=== PATIENT | female | born 1985 | race American Indian/Alaskan Native ===

== ENCOUNTER 2019-12-30 13:35 | Emergency (ER) | payer SELFPAY ==
[2019-12-30 13:51] VITALS: BP 140/86
--- NOTE | 2019-12-30 14:03 | Emergency Department Report ---
ED General Adult HPI - General Chief complaint: Eye Problems Stated complaint: RED EYE/BLURRY VISION Time Seen by Provider: 12/30/19 13:59 Source: patient Mode of arrival: Ambulatory Limitations: No Limitations - History of Present Illness Initial comments: 34-year-old -[place] female patient presents with complaints of left eye redness and crusting shut x2 days. She states she does wear contacts, but denies any trauma to the eye, foreign body sensation, photophobia, or vision changes. She rates her current pain as a 8/10 in severity. Severity scale (0 -10): 1 - Related Data Previous Rx's Medication Instructions Recorded Last Taken Type Ofloxacin 0.3% [Ocuflox 0.3% opth] 0 drops OP Q4H #1 bottle 12/30/19 Unknown Rx ED Review of Systems ROS: Stated complaint: RED EYE/BLURRY VISION Other details as noted in HPI Constitutional: denies: chills, diaphoresis, fever, malaise, weakness Eyes: eye pain, eye discharge. denies: vision change ENT: denies: throat pain, dental pain Respiratory: denies: cough, shortness of breath Musculoskeletal: denies: joint swelling, arthralgia Skin: denies: rash, lesions, change in color Neurological: denies: headache, numbness, paresthesias Hematological/Lymphatic: denies: swollen glands ED Past Medical Hx - Past Medical History Previous Medical History?: No - Surgical History Past Surgical History?: No - Medications Home Medications: Home Medications Medication Instructions Recorded Confirmed Last Taken Type Ofloxacin 0.3% [Ocuflox 0.3% opth] 0 drops OP Q4H #1 bottle 12/30/19 Unknown Rx ED Physical Exam - General Limitations: No Limitations General appearance: alert, in no apparent distress - Head Head exam: Present: atraumatic, normocephalic - Eye Eye exam: Present: normal appearance, EOMI (No pain with arm), conjunctival injection (Left), other (Yellow crusting noted to left). Absent: periorbital swelling, periorbital tenderness - ENT ENT exam: Present: mucous membranes moist - Neck Neck exam: Present: normal inspection - Respiratory Respiratory exam: Present: normal lung sounds bilaterally. Absent: respiratory distress - Cardiovascular Cardiovascular Exam: Present: regular rate - Neurological Exam Neurological exam: Present: alert, oriented X3 - Psychiatric Psychiatric exam: Present: normal affect, normal mood - Skin Skin exam: Present: warm, dry, intact, normal color. Absent: rash ED Course Vital Signs 12/30/19 13:47 Temperature 98.7 F Pulse Rate 74 Respiratory 18 Rate Blood Pressure 140/86 [Right] O2 Sat by Pulse 99 Oximetry ED Medical Decision Making - Medical Decision Making 34-year-old -[place] female patient presents with complaints of left eye redness and crusting shut x2 days. She states she does wear contacts, but denies any trauma to the eye, foreign body sensation, photophobia, or vision changes. She rates her current pain as a 8/10 in severity. Left conjunctivitis noted on exam. Given patient is a contact lens wearer, prescription for ofloxacin given. Her vitals are normal, she is well-appearing, and she is stable for discharge home. Recommend follow-up with PCP in 3 days. Strict return precautions were discussed in detail with patient who verbalized understanding. Critical care attestation.: If time is entered above; I have spent that time in minutes in the direct care of this critically ill patient, excluding procedure time. ED Disposition Clinical Impression: Bacterial conjunctivitis of left eye Disposition: DC-01 TO HOME OR SELFCARE Is pt being admited?: No Condition: Stable Instructions: Conjunctivitis (ED) Prescriptions: Ofloxacin 0.3% [Ocuflox 0.3% opth] 0 drops OP Q4H #1 bottle Referrals: [facility] [Provider Group] - 3-5 Days
== END 2019-12-30 14:00 | disposition home or self-care (01) ==
LOC: ED 13:35
DX: B99.8 Other infectious disease (principal); H10.89 Other conjunctivitis
CPT/HCPCS: 99282